=== PATIENT | female | born 1950 | race Asian ===

== ENCOUNTER → 2020-07-23 11:02 | Outpatient (CLI) | payer MEDICARE, OTHER, SELFPAY ==
[2020-07-25 07:59] LABS: COVID19 Sendout Not Detected (Not Detect)
== END ==
PROVIDERS: Family Provider Specialist; Visit Provider Physician Assistant
DX: Z11.59 Encounter for screening for other viral diseases (principal)
CPT/HCPCS: 87635

== ENCOUNTER 2020-07-26 08:43 | Day surgery (SDC) | payer MEDICARE, OTHER, SELFPAY ==
[2020-07-26] MEDS: PROPARACAINE 0.5% OPHTH SOL 2 DROPS EYE-OP (09:42)
[2020-07-26 09:49] VITALS: BMI 25.1
[2020-07-26] MEDS: CATARACT EYE COMPOUND (10 DROPS/SYRINGE) 3 DROPS EYE-OP (09:49)
[2020-07-26 09:59] VITALS: BP 106/59; PULSE 59; RESP 8; TEMP 36.3; O2SAT 96
--- NOTE | 2020-07-26 10:50 | PM.PREOP ---
Pre-operative Note Interval Note History & Physical reviewed/Exam performed by Physician: Yes Changes to H&P: No
--- NOTE | 2020-07-26 10:50 | PM.OP.1 ---
Operative Date/Time/Diagnoses Pre-op diagnosis: Nuclear cataract right eye Procedure & Clinicians Procedure: Cataract Surgery Same procedure as scheduled: Yes Surgeon: Rosalio Lemon Anesthesia Type: MAC +/- and Sedation Operative Notes Procedure in detail: Patient brought to the operating suite. Tetracaine drops placed in the right eye. Patient was prepped and draped in sterile manner. Wire lid speculum was placed in the eye. Betadine drops were placed on the eye. This was irrigated. Lidocaine jelly was placed on the eye. A paracentesis port was created with a side-port blade. 0.1 mL 1% preservative free lidocaine was injected into the anterior chamber. The anterior chamber was deepened with viscoelastic. 2.6 mm keratome was used to create a temporal clear corneal incision. Cystotome and Utrata forceps were used to create continuous tear capsulorrhexis. Balanced salt solution was used to hydro dissect the nucleus. The phacoemulsification handpiece was inserted and the nucleus was removed using the stop and chop technique. The irrigation aspiration handpiece was inserted and the remaining cortex was removed. Anterior chamber was deepened with viscoelastic. An Mcguire ZCB00 intraocular lens with a power of 18.0 was injected into the capsular bag. Irrigation aspiration handpiece was inserted and the remaining viscoelastic was removed. Incision was hydrated with balanced salt solution and found to be leak free with pressure with Weck-Susan sponges. 0.1 mL Vigamox injected anterior chamber. 0.3 mL Kenalog 10 mg was injected subconjunctivally. Lid speculum was removed. The patient left the operating room in excellent condition. Complications: none Post-operative Condition: stable Disposition: same day surgery
[2020-07-26] MEDS: LIDOCAINE JELLY 2% 5 ML 1 APPLIC TOP (11:11)
[2020-07-26] MEDS: CHONDROIDTIN/SOD HYALURONATE 1.05 ML SYRINGE INTRAOCULA (11:11)
[2020-07-26] MEDS: MOXIFLOXACIN INJ 5 MG/ML VIAL EYE-OP (11:12)
[2020-07-26] MEDS: PHENYLEPHRINE/LIDOCAINE VIAL (OR) 0.2 ML EYE-OP (11:12)
[2020-07-26] MEDS: TETRACAINE 0.5% OPHTH DROPS 4 ML 2 DROPS EYE-OP (11:12)
[2020-07-26] MEDS: TRIAMCINOLONE 50 MG/5 ML VIAL INJ (11:12)
[2020-07-26] MEDS: BALANCED SALT IRRIG SOLN NO.2 500 ML, EPINEPHrine 1 MG IRR (11:13)
[2020-07-26 11:28] VITALS: BP 103/69; PULSE 60; RESP 16; TEMP 36.2; O2SAT 98
== END 2020-07-26 11:33 | disposition home or self-care (01) ==
PROVIDERS: Family Provider Specialist; PCP Physician Assistant Medical; Referring Provider Physician Assistant Medical; Visit Provider Ophthalmology
PROC: (CPT 66984; principal; 2020-07-26 10:45)
DX: H25.11 Age-related nuclear cataract, right eye (principal); J45.909 Unspecified asthma, uncomplicated; I10 Essential (primary) hypertension; M06.9 Rheumatoid arthritis, unspecified
CPT/HCPCS: 66984; J0171; J2250; J3010; J3301

== ENCOUNTER → 2020-08-06 13:14 | Outpatient (CLI) | payer MEDICARE, OTHER, SELFPAY ==
[2020-08-06 15:04] LABS: COVID19 -Nasal RAPID Negative (Negative)
== END ==
PROVIDERS: Family Provider Specialist; PCP Physician Assistant Medical; Visit Provider Physician Assistant
DX: Z11.59 Encounter for screening for other viral diseases (principal)
CPT/HCPCS: 87635

== ENCOUNTER 2020-08-09 10:52 | Day surgery (SDC) | payer MEDICARE, OTHER, SELFPAY ==
[2020-08-09] MEDS: PROPARACAINE 0.5% OPHTH SOL 2 DROPS EYE-OP (11:09)
[2020-08-09] MEDS: CATARACT EYE COMPOUND (10 DROPS/SYRINGE) 3 DROPS EYE-OP (11:09)
[2020-08-09 11:10] VITALS: BP 119/70; PULSE 57; RESP 16; TEMP 36.6; O2SAT 98; BMI 25.1
--- NOTE | 2020-08-09 11:41 | P.OP_ITS ---
Operative Date/Time/Diagnoses Pre-op diagnosis: Nuclear Cataract Left eye Post-op diagnosis: same Procedure & Clinicians Same procedure as scheduled: Yes Surgeon: Rosalio Lemon Anesthesia Type: MAC +/- and Sedation Operative Notes Procedure in detail: Patient brought to the operating suite. Tetracaine drops placed in the left eye. Patient was prepped and draped in sterile manner. Wire lid speculum was placed in the eye. Betadine drops were placed on the eye. This was irrigated. Lidocaine jelly was placed on the eye. A paracentesis port was created with a side-port blade. 0.1 mL 1% preservative free lidocaine was injected into the anterior chamber. The anterior chamber was deepened with viscoelastic. 2.6 mm keratome was used to create a temporal clear corneal incision. Cystotome and Utrata forceps were used to create continuous tear capsulorrhexis. Balanced salt solution was used to hydro dissect the nucleus. The phacoemulsification handpiece was inserted and the nucleus was removed using the stop and chop technique. The irrigation aspiration handpiece was inserted and the remaining cortex was removed. Anterior chamber was deepened with viscoe lastic. An Mcguire ZCB00 intraocular lens with a power of 17.5 was injected into the capsular bag. Irrigation aspiration handpiece was inserted and the remaining viscoelastic was removed. Incision was hydrated with balanced salt solution and found to be leak free with pressure with Weck-Susan sponges. 0.1 mL Vigamox injected anterior chamber. 0.3 mL Kenalog 10 mg was injected subconjunctivally. Lid speculum was removed. The patient left the operating room in excellent condition. Complications: none Post-operative Condition: stable Disposition: same day surgery
--- NOTE | 2020-08-09 11:41 | PM.PREOP ---
Pre-operative Note Interval Note History & Physical reviewed/Exam performed by Physician: Yes Changes to H&P: No
[2020-08-09] MEDS: PHENYLEPHRINE/LIDOCAINE VIAL (OR) 0.2 ML EYE-OP (11:57)
[2020-08-09] MEDS: LIDOCAINE JELLY 2% 5 ML 1 APPLIC TOP (11:58)
[2020-08-09] MEDS: MOXIFLOXACIN INJ 5 MG/ML VIAL EYE-OP (11:58)
[2020-08-09] MEDS: TETRACAINE 0.5% OPHTH DROPS 4 ML 2 DROPS EYE-OP (11:58)
[2020-08-09] MEDS: CHONDROIDTIN/SOD HYALURONATE 1.05 ML SYRINGE INTRAOCULA (11:58)
[2020-08-09] MEDS: BALANCED SALT IRRIG SOLN NO.2 500 ML, EPINEPHrine 1 MG IRR (11:58)
[2020-08-09] MEDS: TRIAMCINOLONE 50 MG/5 ML VIAL INJ (11:58)
[2020-08-09 12:10] VITALS: BP 112/74; PULSE 57; RESP 16; TEMP 36.3; O2SAT 100
== END 2020-08-09 12:18 | disposition home or self-care (01) ==
PROVIDERS: Family Provider Specialist; PCP Physician Assistant Medical; Referring Provider Ophthalmology; Visit Provider Ophthalmology
PROC: (CPT 66984; principal; 2020-08-09 12:45)
DX: H25.12 Age-related nuclear cataract, left eye (principal); J45.909 Unspecified asthma, uncomplicated; I10 Essential (primary) hypertension; M06.9 Rheumatoid arthritis, unspecified
CPT/HCPCS: 66984; J0171; J2250; J3301

== ENCOUNTER → 2023-03-11 10:09 | Outpatient (CLI) | payer MEDICARE, OTHER, SELFPAY ==
--- NOTE | 2023-03-11 | DI.US.S_ITS ---
PROCEDURE: US ARTERIAL DUPLEX LE RT INDICATIONS: PAIN TECHNIQUE: Color and pulse Doppler interrogation was performed of the right lower extremity arterial system, with image documentation. COMPARISON: None. FINDINGS: Common femoral artery: 147 cm/sec, with triphasic flow. Deep femoral artery: 82 cm/sec, with triphasic flow. Proximal superficial femoral artery: 142 cm/sec, with triphasic flow. Mid superficial femoral artery: 86 cm/sec, with triphasic flow. Distal superficial femoral artery: 93 cm/sec, with triphasic flow. Popliteal artery: 71 cm/sec, with triphasic flow. Posterior tibial artery: 57 cm/sec, with triphasic flow. Anterior tibial artery/dorsalis pedis: 40 cm/sec, with triphasic flow. Lopez-scale imaging description: Mild diffuse plaque IMPRESSION: No evidence of arterial insufficiency to the right lower extremity. Dictated by: Shannon Marmolejo M.D. on 03/11/2023 at 13:17 Approved by: Shannon Marmolejo M.D. on 03/11/2023 at 13:18
== END ==
PROVIDERS: Family Provider Specialist; PCP Physician Assistant Medical; Referring Provider Physician Assistant Medical; Visit Provider Physician Assistant Medical
DX: M79.661 Pain in right lower leg (principal)
CPT/HCPCS: 93926